=== PATIENT | male | born 1985 | race Caucasian/White ===

== ENCOUNTER 2018-06-06 16:05 | Emergency (ER) | payer SELFPAY ==
[~2018-06-06] VITALS: Ht 177.8 cm; Wt 95.3 kg
--- NOTE | 2018-06-06 16:18 | NUR ---
CALLED PT IN [place], NO RESPONSE.
[2018-06-06] MEDS ORDERED: IV NS 0.9% 1,000 ML BAG IV ONE (16:30)
--- NOTE | 2018-06-06 16:40 | NUR ---
pt bib self c/o Syncopal episode while at work, pt is aaox4, not in respiratory distress, v/s stable, kept rested and comfortable, will continue to monitor.
--- NOTE | 2018-06-06 16:46 | NUR ---
labs drawned and sent to lab.
[2018-06-06 16:48] LABS: BASOPHILS # (AUTO) 0.1 /CMM (0.0-0.2); BASOPHILS % (AUTO) 1.2 % (0.0-2.0); EOSINOPHILS % (AUTO) 2.1 % (0.0-6.0); HEMATOCRIT 39 % (39-51); HEMOGLOBIN 12.4 g/dL (13.5-17.5); LYMPHOCYTES # (AUTO) 2.2 /CMM (0.8-4.8); LYMPHOCYTES % (AUTO) 22.7 % (20.0-44.0); MEAN CORPUSCULAR HGB CONC 32 g/dl (31.0-36.0); MEAN CORPUSCULAR VOLUME 77 fL (80-96); MONOCYTES # (AUTO) 0.8 /CMM (0.1-1.30); MONOCYTES % (AUTO) 7.7 % (2.0-12.0); NEUTROPHILS # (AUTO) 6.5 /CMM (1.8-8.9); NEUTROPHILS % (AUTO) 66.3 % (43.0-81.0); PLATELET COUNT (AUTO) 341 /CMM (150-450); WHITE BLOOD COUNT (AUTO) 9.8 K/uL (4.3-11.0)
[2018-06-06 17:00] LABS: CALCIUM, SERUM 8.6 mg/dL (8.5-10.1); CARBON DIOXIDE 30 mmol/L (21-32); CHLORIDE 101 mmol/L (98-107); CREATININE 1.1 mg/dL (0.6-1.3); GLUCOSE 106 mg/dL (74-106); SODIUM SERUM 137 mmol/L (136-145); UREA NITROGEN, BLOOD 19 mg/dL (7-18)
[2018-06-06 17:06] LABS: ALANINE AMINOTRANSFERASE 35 U/L (12-78); ALBUMIN 3.6 g/dL (3.4-5.0); ALKALINE PHOSPHATASE 60 U/L (46-116); ASPARTATE AMINOTRANSFERASE 20 U/L (15-37); BILIRUBIN,TOTAL 0.2 mg/dL (0.2-1.0); TOTAL PROTEIN, SERUM 7.8 g/dL (6.4-8.2)
[2018-06-06] MEDS ORDERED: ACETAMINOPHEN 325 MG TABLET PO ONE (18:00)
[2018-06-06] MEDS ORDERED: ACETAMINOPHEN 325 MG TABLET ONE (18:03)
--- NOTE | 2018-06-06 19:22 | NUR ---
IV removed. Catheter intact and site benign. Pressure and 4x4 applied to site. No bleeding noted. Patient discharged to home in stable condition. Written and verbal after care instructions given. Patient verbalizes understanding of instruction.
[2018-06-06 19:25] VITALS: BP 123/75
== END 2018-06-06 19:26 | disposition home or self-care (01) ==
LOC: ER 16:14
DX: S09.8XXA Other specified injuries of head, initial encounter (principal); R55 Syncope and collapse; E86.0 Dehydration; F10.10 Alcohol abuse, uncomplicated; Y90.9 Presence of alcohol in blood, level not specified; W18.09XA Striking against other object with subsequent fall, initial encounter; Y93.89 Activity, other specified; Y92.89 Other specified places as the place of occurrence of the external cause; Y99.8 Other external cause status
CPT/HCPCS: 36415; 71045-TC; 80048-TC; 80076-TC; 84484-TC; 85025-TC; 85730-TC; A4606; J7030; Z7610